=== PATIENT | male | born 1995 | race Asian ===

== ENCOUNTER 2016-11-08 22:11 | Emergency (ER) | payer OTHER ==
[2016-11-08 22:21] VITALS: BP 110/68
--- NOTE | 2016-11-08 23:01 | XRAY Preliminary Report ---
Exam: XR Wrist 4 View RT IMPRESSION: 1. Acute, impacted, mildly depressed fracture of the lateral aspect of the radius epiphysis. 2 mm of depression. 2. No dislocation. 3. Dorsal wrist swelling. [facility] SITE ID: [id number]
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
[2016-11-08] MEDS ORDERED: IBUPROFEN 600 MG TABLET PO STA (23:34)
[2016-11-08] MEDS ORDERED: HYDROcod/ACET 5/325 Prepack 6 PO STA (23:34)
[2016-11-08] MEDS ORDERED: HYDROcod/ACET 5/325 Prepack 6 PO ONE (23:37)
[2016-11-08] MEDS ORDERED: IBUPROFEN 600 MG TABLET PO ONE (23:38)
== END 2016-11-09 00:05 | disposition home or self-care (01) ==
LOC: ED 22:11
DX: S52.91XA Unspecified fracture of right forearm, initial encounter for closed fracture (principal); V28.4XXA Motorcycle driver injured in noncollision transport accident in traffic accident, initial encounter; Y92.410 Unspecified street and highway as the place of occurrence of the external cause
CPT/HCPCS: 29125; 73110; 99283; A9270

== ENCOUNTER 2016-12-12 11:00 | Outpatient (CLI) | payer OTHER ==
--- NOTE | 2016-12-12 11:56 | XRAY Report ---
FOUR-VIEW RIGHT WRIST: 12/12/2016 CLINICAL INDICATION: Fracture followup. COMPARISON: 11/08/2016 FINDINGS: AP, lateral, oblique, scaphoid views of the right wrist demonstrate interval healing of th e distal radial fracture, with fracture lines now less evident. Minimal irregularity of the articula r surface is again seen. No new fracture is seen. IMPRESSION: INTERVAL HEALING OF THE RIGHT DISTAL RADIAL FRACTURE. JOB #: [id number] EXT JOB #:
== END 2016-12-12 11:01 | disposition home or self-care (01) ==
LOC: DI 11:00
PROVIDERS: ATTEND Orthopaedic Surgery
DX: S52.501D Unspecified fracture of the lower end of right radius, subsequent encounter for closed fracture with routine healing (principal)

== ENCOUNTER 2021-05-18 08:00 | Outpatient (CLI) | payer OTHER | END 2021-05-18 23:59 | LOC: LAB.N 08:00 | PROVIDERS: ATTEND Nurse Practitioner | DX: U07.1 COVID-19 (principal) ==